=== PATIENT | female | born 1995 | race Two or more races ===

== ENCOUNTER 2019-05-17 12:36 | Outpatient (CLI) | payer OTHER | END 2019-05-17 12:44 | disposition home or self-care (01) | LOC: SONOGRAMA 12:36 → MAMO-SONO 13:15 | DX: B16.9 Acute hepatitis B without delta-agent and without hepatic coma (principal); N30.00 Acute cystitis without hematuria; A92.5 Zika virus disease; D50.0 Iron deficiency anemia secondary to blood loss (chronic); R50.9 Fever, unspecified; B06.9 Rubella without complication; Z3A.01 Less than 8 weeks gestation of pregnancy; Z34.80 Encounter for supervision of other normal pregnancy, unspecified trimester; Z3A.12 12 weeks gestation of pregnancy ==